=== PATIENT | female | born 1985 | race Caucasian/White ===

== ENCOUNTER → 2016-07-11 | Outpatient (CLI) | payer MEDICAID ==
[~2016-07-11] MED LIST: AMOXIL500 MG PO; KEPPRA250 M1 PO; ZOLOFT25 MG PO
== END | disposition short-term general hospital (02) ==
LOC: CLOBGYN 10:10
DX: E34.50 Androgen insensitivity syndrome, unspecified (principal)

== ENCOUNTER 2016-08-09 14:34 | Emergency (ER) | payer MEDICAID ==
[~2016-08-09] VITALS: Ht 162.6 cm; Wt 51.3 kg
== END 2016-08-09 15:39 | disposition short-term general hospital (02) ==
LOC: ER 14:34
DX: J32.9 Chronic sinusitis, unspecified (principal); H66.92 Otitis media, unspecified, left ear; F32.9 Major depressive disorder, single episode, unspecified; F41.9 Anxiety disorder, unspecified; J45.909 Unspecified asthma, uncomplicated; F17.210 Nicotine dependence, cigarettes, uncomplicated